=== PATIENT | male | born 1955 | race African-American/Black ===

== ENCOUNTER 2019-12-02 08:45 | Emergency (ER) | payer OTHER ==
[~2019-12-02] VITALS: Ht 177.8 cm; Wt 90.7 kg
[2019-12-02 08:47] VITALS: Ht 177.8 cm; Wt 90.7 kg
[2019-12-02 09:33] LABS: BASOPHIL % 0.2 % (0-2); PLATELET COUNT 233 x10^3mcL (130-400); RED CELL DISTRIBUTION WIDTH 14.3 % (11.5-14.5)
[2019-12-02 09:58] LABS: CALCIUM 8.6 mg/dL (8.5-10.1); CARBON DIOXIDE 27.1 mmol/L (21-32); CREATININE SERUM 2.9 mg/dL (0.7-1.3); POTASSIUM SERUM 4.1 mmol/L (3.5-5.1)
[2019-12-02 10:03] LABS: BILIRUBIN TOTAL 0.7 mg/dL (0.20-1.00); TOTAL PROTEIN, SERUM 7.1 g/dL (6.4-8.2)
[2019-12-02 10:08] LABS: ALBUMIN 3.2 g/dL (3.4-5.0)
[2019-12-02 11:32] LABS: C REACTIVE PROTEIN 0.6 mg/dL (<=0.9)
[2019-12-02 14:04] VITALS: BP 126/87
== END 2019-12-02 14:04 | disposition home or self-care (01) ==
LOC: ED 08:45
PROVIDERS: Emergency Medicine
DX: R53.1 Weakness (principal); R06.00 Dyspnea, unspecified; E11.9 Type 2 diabetes mellitus without complications; I10 Essential (primary) hypertension; Z20.828 Contact with and (suspected) exposure to other viral communicable diseases; Z88.2 Allergy status to sulfonamides
CPT/HCPCS: 36415; 83880; 85378; Q0092

== ENCOUNTER 2020-04-14 13:15 | Emergency (ER) | payer OTHER, SELFPAY ==
[2020-04-14 14:38] VITALS: BP 137/91
== END 2020-04-14 14:38 | disposition home or self-care (01) ==
LOC: ED 13:15
DX: Z03.818 Encounter for observation for suspected exposure to other biological agents ruled out (principal); I10 Essential (primary) hypertension; E11.9 Type 2 diabetes mellitus without complications; Z88.2 Allergy status to sulfonamides
CPT/HCPCS: U0003-CS